=== PATIENT | male | born 1960 | race Caucasian/White ===

== ENCOUNTER → 2020-09-09 | Outpatient (CLI) | payer BC ==
[~2020-09-09] MED LIST: MINERAL OIL/PETROLAT/GLYCERI 6OZ BTL ONE
== END ==
LOC: WCC 13:03
PROVIDERS: ATTEND Plastic Surgery
DX: T81.30XA Disruption of wound, unspecified, initial encounter (principal); S90.812A Abrasion, left foot, initial encounter; V26.4XXA Motorcycle driver injured in collision with other nonmotor vehicle in traffic accident, initial encounter